=== PATIENT | female | born 2000 | race Hispanic/Latino ===

== ENCOUNTER 2020-11-19 17:43 | Emergency (ER) | payer OTHER ==
[~2020-11-19] VITALS: Ht 157.5 cm; Wt 93.6 kg
[2020-11-19] MEDS ORDERED: PREN1CHW6 PO (17:51)
[2020-11-19] MEDS ORDERED: LIDOCAINE 1% MDV 20ML VIAL SC ONE (18:05)
[2020-11-19 19:24] VITALS: BP 139/61
== END 2020-11-19 19:39 | disposition home or self-care (01) ==
LOC: M ED 17:43
DX: L05.01 Pilonidal cyst with abscess (principal); Z3A.19 19 weeks gestation of pregnancy; Z88.8 Allergy status to other drugs, medicaments and biological substances

== ENCOUNTER 2020-11-21 17:32 | Emergency (ER) | payer OTHER ==
[~2020-11-21] VITALS: Ht 157.5 cm; Wt 94.0 kg
[~2020-11-21 17:32] MED LIST: PREN1CHW6 PO
[2020-11-21 18:26] VITALS: BP 131/80
== END 2020-11-21 18:39 | disposition home or self-care (01) ==
LOC: M ED 17:32
DX: Z48.01 Encounter for change or removal of surgical wound dressing (principal); O99.712 Diseases of the skin and subcutaneous tissue complicating pregnancy, second trimester; L05.01 Pilonidal cyst with abscess; Z3A.19 19 weeks gestation of pregnancy

== ENCOUNTER 2021-01-03 13:04 | Outpatient (CLI) | payer OTHER ==
[~2021-01-03] VITALS: Ht 157.5 cm; Wt 99.3 kg
[2021-01-03 13:16] VITALS: BP 129/62
[2021-01-03 13:18] VITALS: BP 129/62
[2021-01-03 14:04] VITALS: BP 119/58
[2021-01-03] MEDS ORDERED: VITATAB74 PO (14:40)
[2021-01-03] MEDS ORDERED: VITA500C24 PO (14:40)
[2021-01-03 15:52] VITALS: BP 117/56
--- NOTE | 2021-01-03 16:18 | IPNPDOC ---
Obstetrical Progress Note Date of Service Jan 03, 2021 Subjective Pt presenting to triage for c/o back and pelvic pain and pressure, denies burning, itching, odor, states a small amount of discharge Objective Vital Signs Date Time Temp Pulse Resp B/P (MAP) Pulse Ox O2 Delivery O2 Flow Rate FiO2 01/03/21 14:04 86 16 119/58 (78) 01/03/21 13:18 99.7 Assessment Heart Rate (FHR): 140 (appropriate for getational age) Tocometer Contractions: No Sterile Vaginal Examination Dilation: None (visually closed) Cervical Position: Posterior Assessment and Plan Age: 20 : 3 Term: 1 Pre-term: 0 Abortions: 1 Livin Weeks & Days 26+0 Status: Reassuring Group B Streptococcus: Unknown Additional Comments -CVAT, urine sent Pain reproducible over the pubic symphysis. Pt educated on stretching and exercises for pelvic and low back pain. Reviewed use of maternity support belt, safe use of medication and comfort measures. Speculum exam completed with cervix visually closed and posterior. Small amount of thick adherent white discharge noted. JARED, WP, GC, CT, and GBS collected and sent. +hyphe, -clue, -trick. Pt discharged to home with ptl precautions, instruction on reasons to return for care, clotrimazole ordered for topical treatment at [facility]. CORRINE ROMERO CNM Jan 03, 2021 16:18
[2021-01-03 18:03] LABS: CHLAMYDIA DNA AMPLIFICATION NEGATIVE (NEGATIVE); GC DNA AMPLIFICATION NEGATIVE (NEGATIVE)
== END 2021-01-03 16:00 | disposition home or self-care (01) ==
LOC: M LDO 13:04
PROVIDERS: ATTEND Registered Nurse
DX: O26.892 Other specified pregnancy related conditions, second trimester (principal); M54.5 Low back pain; Z3A.26 26 weeks gestation of pregnancy
CPT/HCPCS: 59025; 81001; 87081; 87086; 87491; 87591; G0378; G0463